=== PATIENT | female | born 1965 | race Caucasian/White ===

== ENCOUNTER → 2018-10-28 15:04 | Outpatient (CLI) | payer OTHER, SELFPAY ==
--- NOTE | 2018-10-28 15:11 | DI.MG.S_ITS ---
BILATERAL DIGITAL SCREENING MAMMOGRAM 3D/2D WITH CAD: 10/28/2018 CLINICAL: Routine screening. Baseline exam. Family history of breast cancer. No prior exams were available for comparison. The tissue of both breasts is heterogeneously dense. This may lower the sensitivity of mammography. Current study was also evaluated with a Computer Aided Detection (CAD) system. There is an irregular equal density global asymmetry with an indistinct margin in the left breast at 1 o'clock posterior depth. No other significant masses, calcifications, or other findings are seen in either breast. IMPRESSION: INCOMPLETE: NEEDS ADDITIONAL IMAGING EVALUATION The irregular equal density global asymmetry in the left breast is indeterminate. Mediolateral and spot compression views as well as additional views with possible ultrasound are recommended. This exam was interpreted at Station ID: [id number]. NOTE: For mammograms, a report in lay terms will be sent to the patient. Approximately 15% of breast malignancies will not be visualized mammographically. In the management of a palpable breast mass, a negative mammogram must not discourage biopsy of a clinically suspicious lesion. Electronically Signed By: Biju [email or web address]/[email or web address]:10/28/2018 17:17:33 letter sent: Additional Imaging Needed ACR BI-RADS Category 0: Incomplete 3340F
== END ==
PROVIDERS: PCP Acupuncturist; Visit Provider Acupuncturist
DX: Z12.31 Encounter for screening mammogram for malignant neoplasm of breast (principal); Z80.3 Family history of malignant neoplasm of breast
CPT/HCPCS: 77063; 77067

== ENCOUNTER → 2018-11-14 09:03 | Outpatient (CLI) | payer OTHER, SELFPAY ==
--- NOTE | 2018-11-14 | DI.US.S_ITS ---
LIMITED ULTRASOUND OF LEFT BREAST: 11/14/2018 CLINICAL: Patient returns today to evaluate an architectural distortion in the left breast. Comparison is made to exams dated: 10/28/2018 mammogram and 11/14/2018 mammogram - [facility]. Color flow and real-time ultrasound of the left breast upper outer quadrant were performed. Collins scale images of the real-time examination were reviewed. There is an area of fibrocystic tissue in the left breast at 1 o'clock anterior depth. Within the tissue are multiple small round and oval cysts measuring 7-8 mm, some with low level internal echos. No suspicious solid componenet or shadow. Color flow imaging demonstrates that there is no vascularity present. This correlates with mammography findings. IMPRESSION: PROBABLY BENIGN The area of fibrocystic tissue in the left breast is probably benign. A follow-up left mammogram and an ultrasound in 6 months is recommended to demonstrate stability. Findings and recommendations were conveyed to the patient at time of exam. This exam was interpreted at Station ID: [id number]. Electronically Signed By: Azul marie/:11/14/2018 10:10:31 letter sent: Followup Recommended Ultrasound BI-RADS: 3 Probably benign
--- NOTE | 2018-11-14 | DI.MG.S_ITS ---
UNILATERAL LEFT DIGITAL DIAGNOSTIC MAMMOGRAM 3D/2D WITH ADDITIONAL VIEWS: 11/14/2018 CLINICAL: Additional evaluation requested from prior study. Comparison is made to exam dated: 10/28/2018 [facility]. The tissue of left breast is heterogeneously dense. This may lower the sensitivity of mammography. There is an irregular equal density global asymmetry with an indistinct margin in the left breast at 1 o'clock anterior to mid depth. This is confirmed in additional views. A smoothly circumscribed 6 mm ovoid asymmetry is seen along the posterior fat-glandular interface in the MLO spot projection. No other significant masses or calcifications are seen in the breast. IMPRESSION: INCOMPLETE: NEEDS ADDITIONAL IMAGING EVALUATION The irregular equal density global asymmetry in the left breast is likely fibrocystic change but remains indeterminate. An ultrasound is recommended. This was performed immediately following this exam. This exam was interpreted at Station ID: [id number]. NOTE: For mammograms, a report in lay terms will be sent to the patient. Approximately 15% of breast malignancies will not be visualized mammographically. In the management of a palpable breast mass, a negative mammogram must not discourage biopsy of a clinically suspicious lesion. Electronically Signed By: Azul marie/:11/14/2018 10:06:02 ACR BI-RADS Category 0: Incomplete 3340F
== END ==
PROVIDERS: PCP Acupuncturist; Visit Provider Acupuncturist
DX: R92.8 Other abnormal and inconclusive findings on diagnostic imaging of breast (principal)
CPT/HCPCS: 76642; 77065; G0279

== ENCOUNTER → 2020-03-04 08:35 | Outpatient (CLI) | payer OTHER, SELFPAY ==
--- NOTE | 2020-03-04 | DI.MG.S_ITS ---
BILATERAL DIGITAL DIAGNOSTIC MAMMOGRAM 3D/2D SHORT-TERM FOLLOW-UP: 03/04/2020 CLINICAL: Patient returns for a late follow up of the left breast, due for bilateral exam. Comparison is made to exams dated: 11/14/2018 mammogram and 10/28/2018 mammogram - [facility]. The tissue of both breasts is heterogeneously dense. This may lower the sensitivity of mammography. There is a stable irregular equal density global asymmetry with an indistinct margin in the left breast at 1 o'clock posterior depth. No other significant masses, calcifications, or other findings are seen in either breast. IMPRESSION: BENIGN The stable irregular equal density global asymmetry in the left breast is consistent with fibrocystic change and is benign. There is no mammographic evidence of malignancy. Return to annual mammogram screening schedule is recommended. This exam was interpreted at Station ID: [id number]. NOTE: For mammograms, a report in lay terms will be sent to the patient. Approximately 15% of breast malignancies will not be visualized mammographically. In the management of a palpable breast mass, a negative mammogram must not discourage biopsy of a clinically suspicious lesion. Electronically Signed By: Bonilla Gallegos acr/:03/04/2020 09:27:25 letter sent: Normal Exam ACR BI-RADS Category 2: Benign Finding(s) 3342F
== END ==
PROVIDERS: PCP Acupuncturist; Referring Provider Acupuncturist; Visit Provider Acupuncturist
DX: R92.8 Other abnormal and inconclusive findings on diagnostic imaging of breast (principal)
CPT/HCPCS: 77066; G0279